=== PATIENT | male | born 1970 | race Two or more races ===

== ENCOUNTER 2021-12-18 14:28 | Inpatient (IN) | payer OTHER ==
[2021-12-18] MEDS ORDERED: MAG HYDROX/AL HYDROX/SIMETH 30 ML UNIT-DOSE CUP PO PRN (15:40)
[2021-12-18] MEDS ORDERED: BENZOCAINE/MENTHOL (CHLORASEPTIC ) LOZENGE MM PRN (15:40)
[2021-12-18] MEDS ORDERED: MAGNESIUM CITRATE 300 ML BOTTLE PO PRN (15:40)
[2021-12-18] MEDS ORDERED: NALOXONE HCL (KLOXXADO) 8 MG SPRAY NS PRN (15:40)
[2021-12-18] MEDS ORDERED: chlordiazePOXIDE HCL 25 MG CAPSULE PO PRN (15:40)
[2021-12-18] MEDS ORDERED: IBUPROFEN 400 MG TABLET (FP) PO PRN (15:40)
[2021-12-18] MEDS ORDERED: MAGNESIUM HYDROX 2400MG/30ML ORAL SUSPENSION 30 ML CUP PO PRN (15:40)
[2021-12-18] MEDS ORDERED: ONDANSETRON *ODT* 4 MG TABLET SL PRN (15:40)
[2021-12-18] MEDS ORDERED: NICOTINE 10 MG CARTRIDGE (INHALER) IH PRN (15:40)
[2021-12-18] MEDS ORDERED: DICYCLOMINE HCL 10 MG CAPSULE PO PRN (15:40)
[2021-12-18] MEDS ORDERED: ACETAMINOPHEN 325 MG TABLET (FP) PO PRN (15:40)
[2021-12-18] MEDS ORDERED: BISMUTH SUBSALICYLATE 524 MG/30 ML PO PRN (15:40)
[2021-12-18] MEDS ORDERED: LOPERAMIDE HCL 2 MG CAPSULE PO PRN (15:40)
[2021-12-18 16:20] VITALS: BMI 24.7
[2021-12-18] MEDS: PRENATAL VITAMINS W/ FOLIC ACID TABLET (FP) PO SCH (19:08)
[2021-12-18] MEDS: hydrOXYzine PAMOATE 25 MG CAPSULE (FP) PO SCH ×2 (19:09→22:30)
[2021-12-18] MEDS ORDERED: ASPIRIN 81 MG CHEWABLE TABLETS PO ONE (21:40)
[2021-12-18] MEDS: THIAMINE HCL 100 MG TABLET (FP) PO SCH (22:30)
[2021-12-18] MEDS: MELATONIN 5 MG TABLETS PO SCH (22:30)
[2021-12-18] MEDS: chlordiazePOXIDE HCL 25 MG CAPSULE PO SCH (22:32)
[2021-12-19] MEDS: chlordiazePOXIDE HCL 25 MG CAPSULE PO SCH ×2 (06:12→10:50)
[2021-12-19] MEDS: hydrOXYzine PAMOATE 25 MG CAPSULE (FP) PO SCH ×4 (06:15→18:41)
[2021-12-19] MEDS ORDERED: methaDONE HCL 10 MG TABLET PO ONE (10:00)
[2021-12-19] MEDS ORDERED: methaDONE 40 MG, methaDONE 30 MG PO ONE (10:15)
[2021-12-19] MEDS: PRENATAL VITAMINS W/ FOLIC ACID TABLET (FP) PO SCH (10:50)
[2021-12-19] MEDS ORDERED: methaDONE HCL 10 MG TABLET ONE (12:05)
[2021-12-19] MEDS ORDERED: methaDONE HCL 40 MG DISPERSABLE TABLET ONE (12:05)
[2021-12-19 12:48] LABS: HEMATOCRIT 38.4 % (35.4-49); HEMOGLOBIN 12.1 GM/dL (11.7-16.9); MCH 24.1 pg (25.7-33.7); MCHC 31.6 g/dl (32.0-35.9); MEAN CELL VOLUME 76.3 fl (80-96); MEAN PLT VOLUME 9.6 fl (7.5-11.1); PLATELET COUNT 165 10^3/uL (134-434); RBC 5.03 M/mm3 (4.00-5.60); RDW 18.3 % (11.9-15.9); WHITE BLOOD COUNT 3.9 K/mm3 (4.0-10.0)
[2021-12-19 12:56] LABS: ALBUMIN 3.6 g/dl (3.4-5.0); BLOOD UREA NITROGEN 18.5 mg/dL (7-18); CALCIUM 8.5 mg/dL (8.5-10.1)
[2021-12-19 12:59] LABS: CREATININE 0.8 mg/dL (0.55-1.3)
[2021-12-19 13:07] LABS: BILIRUBIN,TOTAL 0.4 mg/dL (0.2-1)
[2021-12-19] MEDS: BACITRACIN 0.9 GM PACKET TP SCH (14:05)
[2021-12-19] MEDS: chlordiazePOXIDE HCL 10 MG CAPSULE PO SCH (18:41)
[2021-12-19] MEDS: ACETAMINOPHEN 325 MG TABLET (FP) PO PRN (18:42)
[2021-12-20] MEDS: BACITRACIN 0.9 GM PACKET TP SCH ×2 (00:02→11:25)
[2021-12-20] MEDS: chlordiazePOXIDE HCL 10 MG CAPSULE PO SCH (00:03)
[2021-12-20] MEDS: MELATONIN 5 MG TABLETS PO SCH ×2 (00:03→22:36)
[2021-12-20] MEDS: THIAMINE HCL 100 MG TABLET (FP) PO SCH ×2 (00:04→22:36)
[2021-12-20] MEDS: hydrOXYzine PAMOATE 25 MG CAPSULE (FP) PO SCH ×5 (00:04→18:16)
[2021-12-20] MEDS ORDERED: methaDONE HCL 40 MG DISPERSABLE TABLET ONE (04:53)
[2021-12-20] MEDS ORDERED: methaDONE HCL 10 MG TABLET ONE (04:53)
[2021-12-20] MEDS ORDERED: methaDONE HCL 10 MG TABLET PO SCH (06:00)
[2021-12-20] MEDS: chlordiazePOXIDE HCL 25 MG CAPSULE PO SCH ×4 (06:35→22:36)
[2021-12-20] MEDS: methaDONE 40 MG, methaDONE 30 MG PO SCH (06:35)
[2021-12-20] MEDS: PRENATAL VITAMINS W/ FOLIC ACID TABLET (FP) PO SCH (11:25)
[2021-12-20 14:08] LABS: SARS-CoV-2 NAA Not Detected (Not Detected)
[2021-12-20] MEDS: ACETAMINOPHEN 325 MG TABLET (FP) PO PRN (22:38)
[2021-12-21] MEDS ORDERED: chlordiazePOXIDE HCL 10 MG CAPSULE PO PRN
[2021-12-21] MEDS ORDERED: methaDONE HCL 10 MG TABLET ONE (04:41)
[2021-12-21] MEDS ORDERED: methaDONE HCL 40 MG DISPERSABLE TABLET ONE (04:41)
[2021-12-21] MEDS: chlordiazePOXIDE HCL 10 MG CAPSULE PO SCH ×4 (06:12→22:43)
[2021-12-21] MEDS: methaDONE 40 MG, methaDONE 30 MG PO SCH (06:12)
[2021-12-21] MEDS: hydrOXYzine PAMOATE 25 MG CAPSULE (FP) PO SCH ×6 (06:15→22:44)
[2021-12-21] MEDS: PRENATAL VITAMINS W/ FOLIC ACID TABLET (FP) PO SCH (10:08)
[2021-12-21] MEDS: BACITRACIN 0.9 GM PACKET TP SCH ×2 (10:09→22:45)
[2021-12-21] MEDS: METHOCARBAMOL 500 MG TABLET PO PRN ×2 (10:09→22:43)
[2021-12-21] MEDS: MELATONIN 5 MG TABLETS PO SCH (22:44)
[2021-12-21] MEDS: THIAMINE HCL 100 MG TABLET (FP) PO SCH (22:45)
[2021-12-22] MEDS ORDERED: methaDONE HCL 10 MG TABLET ONE (04:46)
[2021-12-22] MEDS ORDERED: methaDONE HCL 40 MG DISPERSABLE TABLET ONE (04:46)
[2021-12-22] MEDS: chlordiazePOXIDE HCL 10 MG CAPSULE PO SCH ×2 (06:00→18:40)
[2021-12-22] MEDS: BACITRACIN 0.9 GM PACKET TP SCH ×3 (06:00→22:39)
[2021-12-22] MEDS: methaDONE 40 MG, methaDONE 30 MG PO SCH (06:01)
[2021-12-22] MEDS: hydrOXYzine PAMOATE 25 MG CAPSULE (FP) PO SCH ×5 (06:04→22:39)
[2021-12-22] MEDS: PRENATAL VITAMINS W/ FOLIC ACID TABLET (FP) PO SCH (10:34)
[2021-12-22] MEDS: METHOCARBAMOL 500 MG TABLET PO PRN ×2 (10:35→22:39)
[2021-12-22] MEDS: MELATONIN 5 MG TABLETS PO SCH (22:39)
[2021-12-22] MEDS: THIAMINE HCL 100 MG TABLET (FP) PO SCH (22:39)
[2021-12-23] MEDS ORDERED: methaDONE HCL 10 MG TABLET ONE (04:46)
[2021-12-23] MEDS ORDERED: methaDONE HCL 40 MG DISPERSABLE TABLET ONE (04:46)
[2021-12-23] MEDS ORDERED: chlordiazePOXIDE HCL 10 MG CAPSULE PO ONE (05:00)
[2021-12-23] MEDS: methaDONE 40 MG, methaDONE 30 MG PO SCH (05:12)
[2021-12-23] MEDS: hydrOXYzine PAMOATE 25 MG CAPSULE (FP) PO SCH ×2 (06:35→10:07)
[2021-12-23 07:03] VITALS: PULSE 55
[2021-12-23 09:10] VITALS: BP 131/72; TEMP 96.8
[2021-12-23] MEDS: PRENATAL VITAMINS W/ FOLIC ACID TABLET (FP) PO SCH (10:07)
[2021-12-23] MEDS: BACITRACIN 0.9 GM PACKET TP SCH (10:07)
[2021-12-23] MEDS: METHOCARBAMOL 500 MG TABLET PO PRN (10:07)
== END 2021-12-23 11:48 | disposition other institution (70) | DRG 773 ==
LOC: YASAS 14:28 → Y6N 16:45
PROVIDERS: ADMIT Allergy & Immunology; ATTEND Allergy & Immunology
PROC: HZ2ZZZZ Detoxification Services for Substance Abuse Treatment (ICD-10-PCS; principal; 2021-12-18)
DX: F11.23 Opioid dependence with withdrawal (principal); F10.230 Alcohol dependence with withdrawal, uncomplicated; F14.20 Cocaine dependence, uncomplicated; F12.20 Cannabis dependence, uncomplicated; F17.210 Nicotine dependence, cigarettes, uncomplicated; L03.116 Cellulitis of left lower limb; R00.1 Bradycardia, unspecified; R94.31 Abnormal electrocardiogram [ECG] [EKG]
CPT/HCPCS: 36415; 80053; 85027; 86780; 93005; 93010; C9803-CS; U0003; U0005

== ENCOUNTER 2021-12-23 12:29 | Inpatient (IN) | payer OTHER ==
[2021-12-23] MEDS ORDERED: LOPERAMIDE HCL 2 MG CAPSULE PO PRN (16:13)
[2021-12-23] MEDS ORDERED: NICOTINE 10 MG CARTRIDGE (INHALER) IH PRN (16:13)
[2021-12-23] MEDS ORDERED: P-EPHED 60MG/TRIPROLIDI 2.5MG TABLET PO PRN (16:13)
[2021-12-23] MEDS ORDERED: MAGNESIUM CITRATE 300 ML BOTTLE PO PRN (16:13)
[2021-12-23] MEDS ORDERED: hydrOXYzine PAMOATE 25 MG CAPSULE (FP) PO PRN (16:13)
[2021-12-23] MEDS ORDERED: guaiFENesin 200 MG/10 ML 10 ML UNIT-DOSE CUPS PO PRN (16:13)
[2021-12-23] MEDS ORDERED: ACETAMINOPHEN 325 MG TABLET (FP) PO PRN (16:13)
[2021-12-23] MEDS ORDERED: BENZOCAINE/MENTHOL (CHLORASEPTIC ) LOZENGE MM PRN (16:13)
[2021-12-23] MEDS ORDERED: NICOTINE POLACRILEX 2 MG GUM BUC PRN (16:13)
[2021-12-23] MEDS ORDERED: MAGNESIUM HYDROX 2400MG/30ML ORAL SUSPENSION 30 ML CUP PO PRN (16:13)
[2021-12-23] MEDS ORDERED: MAG HYDROX/AL HYDROX/SIMETH 30 ML UNIT-DOSE CUP PO PRN (16:13)
[2021-12-23] MEDS: IBUPROFEN 400 MG TABLET (FP) PO PRN (17:51)
[2021-12-23] MEDS: THIAMINE HCL 100 MG TABLET (FP) PO SCH (21:16)
[2021-12-23] MEDS: MELATONIN 5 MG TABLETS PO PRN (21:16)
[2021-12-24] MEDS ORDERED: PATIENT'S OWN MEDICATION (NON-FORMULARY) (Methadone 70 MG) PO SCH (06:00)
[2021-12-24] MEDS ORDERED: methaDONE HCL 10 MG TABLET ONE (06:15)
[2021-12-24] MEDS ORDERED: methaDONE HCL 40 MG DISPERSABLE TABLET ONE (06:15)
[2021-12-24] MEDS: methaDONE 40 MG, methaDONE 30 MG PO SCH (06:15)
[2021-12-24] MEDS: PRENATAL VITAMINS W/ FOLIC ACID TABLET (FP) PO SCH (09:46)
[2021-12-24] MEDS: IBUPROFEN 400 MG TABLET (FP) PO PRN ×2 (09:57→21:10)
[2021-12-24] MEDS: MELATONIN 5 MG TABLETS PO PRN (21:09)
[2021-12-24] MEDS: THIAMINE HCL 100 MG TABLET (FP) PO SCH (21:09)
[2021-12-25] MEDS ORDERED: methaDONE HCL 40 MG DISPERSABLE TABLET ONE (03:23)
[2021-12-25] MEDS ORDERED: methaDONE HCL 10 MG TABLET ONE (03:23)
[2021-12-25 06:34] VITALS: TEMP 97.1
[2021-12-25] MEDS: methaDONE 40 MG, methaDONE 30 MG PO SCH (08:34)
[2021-12-25 08:36] VITALS: PULSE 56
[2021-12-25 09:32] VITALS: BP 146/88
[2021-12-25] MEDS: PRENATAL VITAMINS W/ FOLIC ACID TABLET (FP) PO SCH (10:32)
== END 2021-12-25 09:52 | disposition left against medical advice (07) | DRG 770 ==
LOC: YASAS 12:29 → Y3E 12:33
PROVIDERS: ADMIT Allergy & Immunology; ATTEND Allergy & Immunology
PROC: HZ42ZZZ Group Counseling for Substance Abuse Treatment, Cognitive-Behavioral (ICD-10-PCS; principal; 2021-12-23)
DX: F11.20 Opioid dependence, uncomplicated (principal); F10.20 Alcohol dependence, uncomplicated; F14.20 Cocaine dependence, uncomplicated; F12.20 Cannabis dependence, uncomplicated; F17.210 Nicotine dependence, cigarettes, uncomplicated; L97.921 Non-pressure chronic ulcer of unspecified part of left lower leg limited to breakdown of skin; R00.1 Bradycardia, unspecified; R26.2 Difficulty in walking, not elsewhere classified; Z87.39 Personal history of other diseases of the musculoskeletal system and connective tissue

== ENCOUNTER 2022-02-28 11:29 | Inpatient (IN) | payer OTHER ==
[2022-02-28 12:21] VITALS: BMI 25.1
[2022-02-28] MEDS ORDERED: IBUPROFEN 400 MG TABLET (FP) PO PRN (13:32)
[2022-02-28] MEDS ORDERED: NALOXONE HCL (KLOXXADO) 8 MG SPRAY NS PRN (13:32)
[2022-02-28] MEDS ORDERED: LOPERAMIDE HCL 2 MG CAPSULE PO PRN (13:32)
[2022-02-28] MEDS ORDERED: MAGNESIUM CITRATE 300 ML BOTTLE PO PRN (13:32)
[2022-02-28] MEDS ORDERED: chlordiazePOXIDE HCL 25 MG CAPSULE PO PRN (13:32)
[2022-02-28] MEDS ORDERED: ACETAMINOPHEN 325 MG TABLET (FP) PO PRN ×2 (13:32)
[2022-02-28] MEDS ORDERED: MAG HYDROX/AL HYDROX/SIMETH 30 ML UNIT-DOSE CUP PO PRN (13:32)
[2022-02-28] MEDS ORDERED: DICYCLOMINE HCL 10 MG CAPSULE PO PRN (13:32)
[2022-02-28] MEDS ORDERED: BISMUTH SUBSALICYLATE 262 MG/15 ML BTL PO PRN (13:32)
[2022-02-28] MEDS ORDERED: BENZOCAINE/MENTHOL (CHLORASEPTIC ) LOZENGE MM PRN (13:32)
[2022-02-28] MEDS ORDERED: ONDANSETRON *ODT* 4 MG TABLET SL PRN (13:32)
[2022-02-28] MEDS ORDERED: MAGNESIUM HYDROX 2400MG/30ML ORAL SUSPENSION 30 ML CUP PO PRN (13:32)
[2022-02-28] MEDS: hydrOXYzine PAMOATE 25 MG CAPSULE (FP) PO SCH ×3 (15:03→23:45)
[2022-02-28 17:47] LABS: HIV INTERPRETATION NEGATIVE (NEGATIVE)
[2022-02-28] MEDS: chlordiazePOXIDE HCL 25 MG CAPSULE PO SCH ×2 (18:30→23:44)
[2022-02-28] MEDS: MELATONIN 5 MG TABLETS PO SCH (23:45)
[2022-02-28] MEDS: THIAMINE HCL 100 MG TABLET (FP) PO SCH (23:45)
[2022-03-01] MEDS: hydrOXYzine PAMOATE 25 MG CAPSULE (FP) PO SCH ×5 (06:07→23:13)
[2022-03-01] MEDS: chlordiazePOXIDE HCL 25 MG CAPSULE PO SCH ×2 (06:07→10:37)
[2022-03-01] MEDS ORDERED: methaDONE HCL 40 MG DISPERSABLE TABLET PO ONE (08:40)
[2022-03-01] MEDS: PRENATAL VITAMINS W/ FOLIC ACID TABLET (FP) PO SCH (10:37)
[2022-03-01] MEDS: METHOCARBAMOL 500 MG TABLET PO PRN (10:37)
[2022-03-01] MEDS: NICOTINE 7 MG/24 HOURS TOPICAL PATCH TD SCH (10:38)
[2022-03-01 14:29] LABS: HEMATOCRIT 34.4 % (35.4-49); HEMOGLOBIN 11.4 GM/dL (11.7-16.9); MCH 26.3 pg (25.7-33.7); MCHC 33.2 g/dl (32.0-35.9); MEAN CELL VOLUME 79.4 fl (80-96); PLATELET COUNT 187 10^3/uL (134-434); RBC 4.34 M/mm3 (4.00-5.60); RDW 15.6 % (11.9-15.9)
[2022-03-01 14:38] LABS: CALCIUM 8.3 mg/dL (8.5-10.1)
[2022-03-01 14:39] LABS: BLOOD UREA NITROGEN 12.5 mg/dL (7-18)
[2022-03-01 14:41] LABS: ALBUMIN 3.4 g/dl (3.4-5.0); CREATININE 0.8 mg/dL (0.55-1.3)
[2022-03-01 14:43] LABS: BILIRUBIN,TOTAL 0.6 mg/dL (0.2-1); TOT PROT 7.2 g/dl (6.4-8.2)
[2022-03-01 14:51] LABS: WHITE BLOOD COUNT 1.9 K/mm3 (4.0-10.0)
[2022-03-01] MEDS ORDERED: LORazepam 1 MG TABLET PO PRN (14:56)
[2022-03-01] MEDS: LORazepam 2 MG TABLET PO SCH ×2 (17:53→23:13)
[2022-03-01] MEDS: MELATONIN 5 MG TABLETS PO SCH (23:13)
[2022-03-01] MEDS: THIAMINE HCL 100 MG TABLET (FP) PO SCH (23:13)
[2022-03-02] MEDS ORDERED: chlordiazePOXIDE HCL 25 MG CAPSULE PO SCH (05:00)
[2022-03-02] MEDS: LORazepam 2 MG TABLET PO SCH ×4 (06:19→22:42)
[2022-03-02] MEDS: hydrOXYzine PAMOATE 25 MG CAPSULE (FP) PO SCH ×5 (06:19→22:42)
[2022-03-02] MEDS: methaDONE HCL 40 MG DISPERSABLE TABLET PO SCH (07:02)
[2022-03-02] MEDS: NICOTINE 7 MG/24 HOURS TOPICAL PATCH TD SCH (10:46)
[2022-03-02] MEDS: IBUPROFEN 600 MG TABLET (FP) PO PRN (10:48)
[2022-03-02] MEDS: PRENATAL VITAMINS W/ FOLIC ACID TABLET (FP) PO SCH (10:48)
[2022-03-02] MEDS: METHOCARBAMOL 500 MG TABLET PO PRN (10:48)
[2022-03-02 14:16] LABS: HEMATOCRIT 31.9 % (35.4-49); HEMOGLOBIN 11.5 GM/dL (11.7-16.9); MEAN CELL VOLUME 80.4 fl (80-96); MEAN PLT VOLUME 10.3 fl (7.5-11.1); PLATELET COUNT 157 10^3/uL (134-434); RBC 3.97 M/mm3 (4.00-5.60); RDW 15.9 % (11.9-15.9); WHITE BLOOD COUNT 4.1 K/mm3 (4.0-10.0)
[2022-03-02 15:12] LABS: ANISOCYTOSIS 0; MACROCYTOSIS 0
[2022-03-02] MEDS: THIAMINE HCL 100 MG TABLET (FP) PO SCH (22:42)
[2022-03-02] MEDS: MELATONIN 5 MG TABLETS PO SCH (22:42)
[2022-03-03] MEDS ORDERED: chlordiazePOXIDE HCL 10 MG CAPSULE PO PRN
[2022-03-03] MEDS ORDERED: chlordiazePOXIDE HCL 10 MG CAPSULE PO SCH (05:00)
[2022-03-03] MEDS: LORazepam 1 MG TABLET PO SCH ×4 (06:56→22:51)
[2022-03-03] MEDS: methaDONE HCL 40 MG DISPERSABLE TABLET PO SCH (06:56)
[2022-03-03] MEDS: hydrOXYzine PAMOATE 25 MG CAPSULE (FP) PO SCH ×6 (06:56→22:53)
[2022-03-03] MEDS: METHOCARBAMOL 500 MG TABLET PO PRN ×2 (10:46→22:50)
[2022-03-03] MEDS: PRENATAL VITAMINS W/ FOLIC ACID TABLET (FP) PO SCH (10:46)
[2022-03-03] MEDS: IBUPROFEN 600 MG TABLET (FP) PO PRN (10:47)
[2022-03-03] MEDS: NICOTINE 7 MG/24 HOURS TOPICAL PATCH TD SCH (10:47)
[2022-03-03] MEDS: THIAMINE HCL 100 MG TABLET (FP) PO SCH ×2 (22:50→22:52)
[2022-03-03] MEDS: MELATONIN 5 MG TABLETS PO SCH ×2 (22:50→22:53)
[2022-03-04] MEDS ORDERED: LORazepam 0.5 MG TABLET PO PRN
[2022-03-04] MEDS ORDERED: chlordiazePOXIDE HCL 10 MG CAPSULE PO SCH (05:00)
[2022-03-04] MEDS: hydrOXYzine PAMOATE 25 MG CAPSULE (FP) PO SCH ×5 (06:16→23:05)
[2022-03-04] MEDS: methaDONE HCL 40 MG DISPERSABLE TABLET PO SCH (06:16)
[2022-03-04] MEDS: LORazepam 0.5 MG TABLET PO SCH ×4 (06:17→23:05)
[2022-03-04] MEDS: NICOTINE 7 MG/24 HOURS TOPICAL PATCH TD SCH (10:50)
[2022-03-04] MEDS: METHOCARBAMOL 500 MG TABLET PO PRN (10:50)
[2022-03-04] MEDS: PRENATAL VITAMINS W/ FOLIC ACID TABLET (FP) PO SCH (10:50)
[2022-03-04] MEDS: IBUPROFEN 600 MG TABLET (FP) PO PRN (10:51)
[2022-03-04] MEDS: MELATONIN 5 MG TABLETS PO SCH (23:05)
[2022-03-04] MEDS: THIAMINE HCL 100 MG TABLET (FP) PO SCH (23:05)
[2022-03-05] MEDS ORDERED: chlordiazePOXIDE HCL 10 MG CAPSULE PO ONE (05:00)
[2022-03-05] MEDS ORDERED: LORazepam 0.5 MG TABLET PO ONE (05:00)
[2022-03-05] MEDS: hydrOXYzine PAMOATE 25 MG CAPSULE (FP) PO SCH ×5 (06:27→21:45)
[2022-03-05] MEDS: methaDONE HCL 40 MG DISPERSABLE TABLET PO SCH (06:27)
[2022-03-05] MEDS: NICOTINE 7 MG/24 HOURS TOPICAL PATCH TD SCH (11:25)
[2022-03-05] MEDS: PRENATAL VITAMINS W/ FOLIC ACID TABLET (FP) PO SCH (11:25)
[2022-03-05] MEDS: ACETAMINOPHEN 325 MG TABLET (FP) PO PRN (18:21)
[2022-03-05] MEDS: THIAMINE HCL 100 MG TABLET (FP) PO SCH (21:45)
[2022-03-05] MEDS: MELATONIN 5 MG TABLETS PO SCH (21:45)
[2022-03-06] MEDS: methaDONE HCL 40 MG DISPERSABLE TABLET PO SCH (06:07)
[2022-03-06] MEDS: hydrOXYzine PAMOATE 25 MG CAPSULE (FP) PO SCH ×2 (06:07→09:50)
[2022-03-06] MEDS: ACETAMINOPHEN 325 MG TABLET (FP) PO PRN (07:06)
[2022-03-06] MEDS: NICOTINE 7 MG/24 HOURS TOPICAL PATCH TD SCH (09:50)
[2022-03-06] MEDS: METHOCARBAMOL 500 MG TABLET PO PRN (09:50)
[2022-03-06] MEDS: PRENATAL VITAMINS W/ FOLIC ACID TABLET (FP) PO SCH (09:50)
[2022-03-06] MEDS: MELATONIN 5 MG TABLETS PO SCH (22:44)
[2022-03-06] MEDS: THIAMINE HCL 100 MG TABLET (FP) PO SCH (22:44)
[2022-03-07] MEDS: methaDONE HCL 40 MG DISPERSABLE TABLET PO SCH (06:27)
[2022-03-07] MEDS: PRENATAL VITAMINS W/ FOLIC ACID TABLET (FP) PO SCH (09:48)
[2022-03-07] MEDS: NICOTINE 7 MG/24 HOURS TOPICAL PATCH TD SCH (09:49)
[2022-03-07] MEDS: THIAMINE HCL 100 MG TABLET (FP) PO SCH (23:49)
[2022-03-07] MEDS: MELATONIN 5 MG TABLETS PO SCH (23:49)
[2022-03-08] MEDS: methaDONE HCL 40 MG DISPERSABLE TABLET PO SCH (06:10)
[2022-03-08] MEDS: PRENATAL VITAMINS W/ FOLIC ACID TABLET (FP) PO SCH (09:25)
[2022-03-08] MEDS: IBUPROFEN 600 MG TABLET (FP) PO PRN (09:25)
[2022-03-08] MEDS: NICOTINE 7 MG/24 HOURS TOPICAL PATCH TD SCH (09:25)
[2022-03-08 09:43] VITALS: BP 132/90; PULSE 61; TEMP 97.8
== END 2022-03-08 11:23 | disposition home or self-care (01) | DRG 773 ==
LOC: YASAS 11:29 → Y6N 13:49
PROVIDERS: ADMIT Allergy & Immunology; ATTEND Surgery
PROC: HZ2ZZZZ Detoxification Services for Substance Abuse Treatment (ICD-10-PCS; principal; 2022-02-28)
DX: F10.230 Alcohol dependence with withdrawal, uncomplicated (principal); F11.20 Opioid dependence, uncomplicated; F14.20 Cocaine dependence, uncomplicated; F12.20 Cannabis dependence, uncomplicated; F17.210 Nicotine dependence, cigarettes, uncomplicated; U07.1 COVID-19; L97.821 Non-pressure chronic ulcer of other part of left lower leg limited to breakdown of skin; B18.2 Chronic viral hepatitis C; R76.8 Other specified abnormal immunological findings in serum
CPT/HCPCS: 36415; 80053; 82962; 85025; 85027; 86704; 86705; 86780; 86803; 87389; 87517; 87522; C9803-CS; U0003; U0005